=== PATIENT | female | born 1930 | race African-American/Black ===

== ENCOUNTER → 2016-12-17 | Outpatient (CLI) | payer MEDICARE, MEDICAID ==
[~2016-12-17] MED LIST: ASPI-1159 PO; BIMA2.5D4 EACHEYE; LOSA100T14 PO; OMEP20TA15 PO; OXYB5TAB11 PO; PRED1DRO LEFTEYE
== END | disposition home or self-care (01) ==
LOC: MAMMO 10:19
PROVIDERS: ATTEND Internal Medicine Nephrology
DX: Z12.31 Encounter for screening mammogram for malignant neoplasm of breast (principal)
CPT/HCPCS: G0202

== ENCOUNTER 2019-05-10 07:22 | Inpatient (IN) | payer MEDICARE, MEDICAID ==
[~2019-05-10] VITALS: Ht 165.1 cm; Wt 75.8 kg
[~2019-05-10 07:22] MED LIST changes: -ASPI-1159 PO; +ASPI-1497 PO; -LOSA100T14 PO; +LOSA100T32 PO; -OXYB5TAB11 PO; +OXYB5TAB16 PO
[2019-05-10 08:21] LABS: BASOPHILS % 1.2 % (0.0-2.0); EOSINOPHILS % 3.9 % (0.0-5.0); HEMATOCRIT. 39.1 % (36.0-48.0); HEMOGLOBIN. 12.9 g/dL (12.0-16.0); LYMPHOCYTES % 33.4 % (20.0-50.0); MEAN CORPUSCULAR HEMOGLOBIN 28.9 pg (28.0-32.0); MEAN CORPUSCULAR VOLUME 87.9 fL (81.0-99.0); MEAN PLATELET VOLUME 7.3 fl (7.4-10.4); MONOCYTES % 5.1 % (2.0-8.0); NEUTROPHILS % 56.4 % (40.0-76.0); PLATELET 283 x1000/uL (130-400); RED BLOOD CELL COUNT 4.45 mill/uL (4.2-5.4); RED CELL DISTRIBUTION WIDTH 14.9 % (11.6-14.6)
[2019-05-10 08:30] LABS: INR 0.9; PARTIAL THROMBOPLASTIN TIME 38.2 sec (23.4-31.0); PROTHROMBIN TIME 10.1 sec (9.6-11.0)
[2019-05-10 08:31] LABS: CHLORIDE 104 mEq/L (98-107)
[2019-05-10] MEDS ORDERED: VANCOMYCIN 1 G PREMIX 200 ML IV NR (09:57)
[2019-05-10] MEDS ORDERED: POLY15DR31 OP (10:11)
[2019-05-10] MEDS ORDERED: CLON0.1T PO (10:11)
[2019-05-10] MEDS ORDERED: DOCU250C89 PO (10:11)
[2019-05-10] MEDS ORDERED: LATA2.5D2 EACHEYE (10:11)
[2019-05-10] MEDS ORDERED: LIDOCAINE HCL 1% 20ML VIAL (Pyxis) INJ ONE ×2 (11:13→11:42)
[2019-05-10] MEDS ORDERED: GENTAMICIN SULF 40MG/ML 2ML VIAL ONE (11:13)
[2019-05-10] MEDS ORDERED: GENTAMICIN/NS IRRIGATION 500 ML IR ONE (11:18)
[2019-05-10] MEDS ORDERED: FENTANYL CITRATE/PF 50MCG/ML 2ML VIAL ONE (12:05)
[2019-05-10] MEDS ORDERED: DIPHENHYDRAMINE 50MG/ML VIAL ONE (12:06)
[2019-05-10] MEDS ORDERED: PROPOFOL 200MG/20ML VIAL IV ONE (12:06)
[2019-05-10] MEDS ORDERED: MIDAZOLAM HCL 2 MG/2 ML VIAL ONE (12:06)
[2019-05-10] MEDS ORDERED: HYDRALAZINE 20MG/ML VIAL ONE (12:18)
[2019-05-10] MEDS ORDERED: TRAMADOL HCL/ACETAMINOPHEN 37.5/325MG TABLET PO PRN (13:30)
[2019-05-10 23:19] VITALS: BP 148/91
[2019-05-11] VITALS (11 sets, daily range): BP systolic 95–155; BP diastolic 51–79
[2019-05-11 06:52] LABS: BASOPHILS % 1.2 % (0.0-2.0); EOSINOPHILS % 2.1 % (0.0-5.0); HEMATOCRIT. 33.7 % (36.0-48.0); HEMOGLOBIN. 11.4 g/dL (12.0-16.0); LYMPHOCYTES % 25.3 % (20.0-50.0); MEAN CORPUSCULAR HEMOGLOBIN 29.4 pg (28.0-32.0); MEAN CORPUSCULAR VOLUME 86.8 fL (81.0-99.0); MEAN PLATELET VOLUME 7.8 fl (7.4-10.4); MONOCYTES % 7.1 % (2.0-8.0); NEUTROPHILS % 64.3 % (40.0-76.0); PLATELET 267 x1000/uL (130-400); RED BLOOD CELL COUNT 3.89 mill/uL (4.2-5.4); RED CELL DISTRIBUTION WIDTH 14.9 % (11.6-14.6)
[2019-05-11 07:31] LABS: CHLORIDE 107 mEq/L (98-107)
[2019-05-11] MEDS: DOCUSATE SODIUM 250MG CAPSULE PO SCH ×2 (08:02→17:00)
[2019-05-11] MEDS ORDERED: LOSARTAN POTASSIUM 100 MG TABLET PO SCH (09:00)
[2019-05-11] MEDS ORDERED: PREDNISOLONE ACETATE 1% OPHTH DROPS 5ML LEFTEYE SCH (09:00)
[2019-05-11] MEDS ORDERED: CLONIDINE 0.1MG TABLET PO SCH (09:00)
[2019-05-11] MEDS ORDERED: OXYBUTYNIN CHLORIDE 5MG TABLET PO SCH (09:00)
[2019-05-11] MEDS ORDERED: VANCOMYCIN 1 G PREMIX 200 ML IV SCH (11:00)
[2019-05-11] MEDS ORDERED: POLYVINYL ALCOHOL OPHTH DROPS 15ML BOTHEYE PRN (12:30)
[2019-05-11] MEDS ORDERED: LATANOPROST 0.005% OPHTH DROPS 2.5ML EACHEYE SCH (21:00)
== END 2019-05-11 19:01 | DRG 259 ==
LOC: CCL 07:22 → 3WST 21:25
PROVIDERS: ADMIT Internal Medicine Clinical Cardiac Electrophysiology; ATTEND Internal Medicine Clinical Cardiac Electrophysiology
PROC: 0JPT0PZ Removal of Cardiac Rhythm Related Device from Trunk Subcutaneous Tissue and Fascia, Open Approach (ICD-10-PCS; principal; 2019-05-10)
PROC: 0JH606Z Insertion of Pacemaker, Dual Chamber into Chest Subcutaneous Tissue and Fascia, Open Approach (ICD-10-PCS; 2019-05-10)
DX: I49.5 Sick sinus syndrome (principal); I42.0 Dilated cardiomyopathy; M19.90 Unspecified osteoarthritis, unspecified site; I50.9 Heart failure, unspecified; I27.20 Pulmonary hypertension, unspecified; E78.5 Hyperlipidemia, unspecified; I11.0 Hypertensive heart disease with heart failure; R26.89 Other abnormalities of gait and mobility; I25.10 Atherosclerotic heart disease of native coronary artery without angina pectoris; E66.9 Obesity, unspecified; Z85.528 Personal history of other malignant neoplasm of kidney; Z90.5 Acquired absence of kidney; Z68.27 Body mass index [BMI] 27.0-27.9, adult; Z45.010 Encounter for checking and testing of cardiac pacemaker pulse generator [battery]
CPT/HCPCS: 33228; 36415; 71045; 80048; 83735; 85025; 93005; 93306; 97162; C1785; C1893; J0360; J1200; J1580; J1644; J2250; J2704; J3010; J3370; J3490

== ENCOUNTER 2019-08-05 23:02 | Inpatient (IN) | payer MEDICARE, MEDICAID ==
[~2019-08-05] VITALS: Ht 160 cm; Wt 71.7 kg
[~2019-08-05 23:02] MED LIST changes: -ASPI-1497 PO; -BIMA2.5D4 EACHEYE; +CLON0.1T PO; +DOCU250C89 PO; +LATA2.5D2 EACHEYE; -OMEP20TA15 PO; +POLY15DR31 OP
[2019-08-05] MEDS ORDERED: ASPIRIN 81MG TABLET PO ONE (23:45)
[2019-08-05] MEDS ORDERED: NITROGLYCERIN 0.4MG TABLET SL SL PRN (23:45)
[2019-08-06 00:54] LABS: BASOPHILS % 1.3 % (0.0-2.0); EOSINOPHILS % 0.4 % (0.0-5.0); HEMATOCRIT. 34.6 % (36.0-48.0); HEMOGLOBIN. 11.9 g/dL (12.0-16.0); MEAN CORPUSCULAR HEMOGLOBIN 29.7 pg (28.0-32.0); MEAN CORPUSCULAR VOLUME 86.2 fL (81.0-99.0); MONOCYTES % 4.4 % (2.0-8.0); NEUTROPHILS % 80.9 % (40.0-76.0); PLATELET 474 x1000/uL (130-400); RED BLOOD CELL COUNT 4.01 mill/uL (4.2-5.4); RED CELL DISTRIBUTION WIDTH 15.2 % (11.6-14.6)
[2019-08-06 00:58] LABS: CHLORIDE 102 mEq/L (98-107)
[2019-08-06 01:07] LABS: CLARITY URINE CLOUDY (CLEAR); COLOR URINE YELLOW (YELLOW); KETONES URINE NEGATIVE (NEGATIVE); LEUKOCYTE ESTERASE URINE 3+ (NEGATIVE); NITRITE URINE POSITIVE (NEGATIVE); OCCULT BLOOD URINE 2+ (NEGATIVE); PH URINE 5.5 (4.5-8.0); PROTEIN URINE 1+ (NEGATIVE); SPECIFIC GRAVITY URINE 1.009 (1.005-1.030); UROBILINOGEN URINE 0.2 E.U./dL (0.2-1.0)
[2019-08-06 01:09] LABS: CREATINE KINASE 104 IU/L (26-192)
[2019-08-06 01:17] LABS: D-DIMER 1.28 mg/L FEU (<0.50); INR 0.9; PARTIAL THROMBOPLASTIN TIME 30.9 sec (23.4-31.0); PROTHROMBIN TIME 10.2 sec (9.6-11.0)
[2019-08-06] MEDS ORDERED: ENOXAPARIN 80MG/0.8ML SYR SUBCUT SCH (03:00)
[2019-08-06] MEDS ORDERED: CEFTRIAXONE 1 G PREMIX 50 ML IV SCH (03:00)
[2019-08-06] MEDS ORDERED: CLONIDINE 0.1MG TABLET PO PRN (08:15)
[2019-08-06] MEDS ORDERED: ACETAMINOPHEN 325MG TABLET PO PRN (08:15)
[2019-08-06] MEDS ORDERED: ONDANSETRON HCL 4MG/2ML INJ IV PRN (08:15)
[2019-08-06 09:27] VITALS: BP 111/71
[2019-08-06] MEDS ORDERED: PNEUMOCOCCAL 23-VAL P-SAC VAC 0.5 ML IM ONE (11:00)
[2019-08-06] MEDS: LOSARTAN POTASSIUM 25 MG TABLET PO SCH (11:01)
[2019-08-06 12:00] VITALS: BP 116/64
[2019-08-06 15:40] VITALS: BP 118/81
[2019-08-06 17:20] LABS: CREATINE KINASE MB FRACTION 1.2 ng/mL (0.5-3.6)
[2019-08-06 20:00] VITALS: BP 114/67
[2019-08-06] MEDS: FAMOTIDINE 20MG TABLET PO SCH (22:45)
[2019-08-07] VITALS: BP 100/58
[2019-08-07 01:17] LABS: CREATINE KINASE 75 IU/L (26-192)
[2019-08-07 01:18] LABS: CREATINE KINASE MB FRACTION < 1.0 ng/mL (0.5-3.6)
[2019-08-07 04:00] VITALS: BP 122/76
[2019-08-07 08:00] VITALS: BP 112/68
[2019-08-07 08:08] LABS: BASOPHILS % 1.2 % (0.0-2.0); EOSINOPHILS % 1.8 % (0.0-5.0); HEMATOCRIT. 34.5 % (36.0-48.0); HEMOGLOBIN. 11.6 g/dL (12.0-16.0); LYMPHOCYTES % 30.8 % (20.0-50.0); MEAN CORPUSCULAR HEMOGLOBIN 29.4 pg (28.0-32.0); MEAN CORPUSCULAR VOLUME 87.2 fL (81.0-99.0); MONOCYTES % 6.6 % (2.0-8.0); NEUTROPHILS % 59.6 % (40.0-76.0); PLATELET 414 x1000/uL (130-400); RED BLOOD CELL COUNT 3.96 mill/uL (4.2-5.4); RED CELL DISTRIBUTION WIDTH 15.3 % (11.6-14.6)
[2019-08-07 08:16] LABS: CHLORIDE 105 mEq/L (98-107)
[2019-08-07] MEDS: ENOXAPARIN 40MG/0.4ML SYR SUBCUT SCH (09:17)
[2019-08-07] MEDS: LOSARTAN POTASSIUM 25 MG TABLET PO SCH (09:17)
[2019-08-07 12:00] VITALS: BP 118/74
[2019-08-07 16:00] VITALS: BP 108/68
[2019-08-07 20:00] VITALS: BP 100/60
[2019-08-07] MEDS: FAMOTIDINE 20MG TABLET PO SCH (20:08)
[2019-08-08] VITALS: BP 102/70
[2019-08-08 04:00] VITALS: BP 124/73
[2019-08-08 07:37] LABS: BASOPHILS % 1.3 % (0.0-2.0); EOSINOPHILS % 1.6 % (0.0-5.0); HEMATOCRIT. 32.4 % (36.0-48.0); LYMPHOCYTES % 31.6 % (20.0-50.0); MEAN CORPUSCULAR VOLUME 85.8 fL (81.0-99.0); MEAN PLATELET VOLUME 7.2 fl (7.4-10.4); MONOCYTES % 6.4 % (2.0-8.0); NEUTROPHILS % 59.1 % (40.0-76.0); PLATELET 431 x1000/uL (130-400); RED BLOOD CELL COUNT 3.78 mill/uL (4.2-5.4); RED CELL DISTRIBUTION WIDTH 15.2 % (11.6-14.6)
[2019-08-08 08:00] VITALS: BP 128/65
[2019-08-08 08:00] LABS: CHLORIDE 107 mEq/L (98-107)
[2019-08-08] MEDS: ENOXAPARIN 40MG/0.4ML SYR SUBCUT SCH (09:20)
[2019-08-08] MEDS: LOSARTAN POTASSIUM 25 MG TABLET PO SCH (09:20)
[2019-08-08 12:00] VITALS: BP 129/77
[2019-08-08 16:00] VITALS: BP 124/73
[2019-08-08 20:00] VITALS: BP 116/84
[2019-08-08] MEDS: FAMOTIDINE 20MG TABLET PO SCH (20:44)
[2019-08-09 00:10] VITALS: BP 129/70
[2019-08-09 04:00] VITALS: BP 124/75
[2019-08-09 08:00] VITALS: BP 112/69
[2019-08-09] MEDS: LOSARTAN POTASSIUM 25 MG TABLET PO SCH (10:03)
[2019-08-09] MEDS: ENOXAPARIN 40MG/0.4ML SYR SUBCUT SCH (10:03)
[2019-08-09 12:00] VITALS: BP_SYST 112; BP_SYST 114; BP_DIAS 55
[2019-08-09 16:00] VITALS: BP_SYST 128; BP_DIAS 66; BP_DIAS 86
[2019-08-09 20:00] VITALS: BP 111/62
[2019-08-09] MEDS: NITROFURANTOIN 100MG M/M CAPSULE PO SCH (20:36)
[2019-08-09] MEDS: FAMOTIDINE 20MG TABLET PO SCH (20:36)
[2019-08-10] VITALS: BP 137/62
[2019-08-10 04:00] VITALS: BP 135/79
[2019-08-10 08:00] VITALS: BP 133/89
[2019-08-10] MEDS: NITROFURANTOIN 100MG M/M CAPSULE PO SCH (08:54)
[2019-08-10] MEDS: LOSARTAN POTASSIUM 25 MG TABLET PO SCH (08:55)
[2019-08-10] MEDS: ENOXAPARIN 40MG/0.4ML SYR SUBCUT SCH (08:55)
[2019-08-10 12:00] VITALS: BP 170/100
[2019-08-10 15:14] VITALS: BP 148/100
[2019-08-10 16:00] VITALS: BP 172/100
== END 2019-08-10 17:25 | DRG 871 ==
LOC: ER 23:03 → 7WST 08-06 02:28 → ENRESERV 08-06 07:15
PROVIDERS: ADMIT Internal Medicine Nephrology; ATTEND Internal Medicine Nephrology
DX: A41.89 Other specified sepsis (principal); U07.1 COVID-19; I42.0 Dilated cardiomyopathy; E87.1 Hypo-osmolality and hyponatremia; N30.00 Acute cystitis without hematuria; I50.30 Unspecified diastolic (congestive) heart failure; I49.5 Sick sinus syndrome; K21.9 Gastro-esophageal reflux disease without esophagitis; M48.02 Spinal stenosis, cervical region; M48.061 Spinal stenosis, lumbar region without neurogenic claudication; E78.5 Hyperlipidemia, unspecified; I11.0 Hypertensive heart disease with heart failure; R26.89 Other abnormalities of gait and mobility; J98.8 Other specified respiratory disorders; Z96.659 Presence of unspecified artificial knee joint; R07.89 Other chest pain; M19.90 Unspecified osteoarthritis, unspecified site; I27.29 Other secondary pulmonary hypertension; I48.0 Paroxysmal atrial fibrillation; Z85.528 Personal history of other malignant neoplasm of kidney; Z90.5 Acquired absence of kidney; Z95.0 Presence of cardiac pacemaker; Z87.440 Personal history of urinary (tract) infections; Z88.5 Allergy status to narcotic agent; Z88.8 Allergy status to other drugs, medicaments and biological substances; Z88.2 Allergy status to sulfonamides; Z88.6 Allergy status to analgesic agent; Z88.0 Allergy status to penicillin; Z91.041 Radiographic dye allergy status; Z79.899 Other long term (current) drug therapy
CPT/HCPCS: 36415; 71045; 80048; 80053; 80061; 81003; 82550; 82553; 82728; 83605; 83615; 83735; 83880; 84484; 85025; 85379; 87077; 87186; 93005; 93970; 99291; J0696; J1650; U0003-CS

== ENCOUNTER → 2019-10-15 | Outpatient (CLI) | payer MEDICARE, MEDICAID | END | disposition home or self-care (01) | LOC: MAMMO 11:46 | PROVIDERS: ATTEND Internal Medicine Nephrology | DX: Z12.31 Encounter for screening mammogram for malignant neoplasm of breast (principal) | CPT/HCPCS: 77067 ==

== ENCOUNTER 2020-08-16 12:36 | Emergency (ER) | payer MEDICARE, MEDICAID ==
[~2020-08-16] VITALS: Ht 167.6 cm; Wt 98.0 kg
[~2020-08-16 12:36] MED LIST changes: +LATA2.5D14 EACHEYE; -LATA2.5D2 EACHEYE
[2020-08-16 12:37] VITALS: BP 0/0
== END 2020-08-16 14:22 ==
LOC: ER 12:59
DX: I46.9 Cardiac arrest, cause unspecified (principal); K21.9 Gastro-esophageal reflux disease without esophagitis; M19.90 Unspecified osteoarthritis, unspecified site; E78.00 Pure hypercholesterolemia, unspecified; I11.0 Hypertensive heart disease with heart failure; Z96.659 Presence of unspecified artificial knee joint; Z88.5 Allergy status to narcotic agent; Z88.2 Allergy status to sulfonamides; Z88.6 Allergy status to analgesic agent; Z95.0 Presence of cardiac pacemaker; Z88.0 Allergy status to penicillin
CPT/HCPCS: 31500; 94640; 99285